=== PATIENT | female | born 1960 | race Caucasian/White ===

== ENCOUNTER → 2019-12-18 | Outpatient (REF) | payer OTHER ==
[2019-12-18 17:48] LABS: APPEARANCE, URINE CLEAR (CLEAR); BACTERIA, URINE AUTO NEGATIVE (NEGATIVE); BILIRUBIN, URINE AUTO NEGATIVE (NEGATIVE); BLOOD, URINE BLOOD NEGATIVE (NEGATIVE); COLOR, URINE STRAW (YELLOW); GLUCOSE, URINE (UA) AUTO NEGATIVE (NEGATIVE); KETONE, URINE AUTO NEGATIVE (NEGATIVE); LEUKOCYTE ESTERASE, URINE AUTO NEGATIVE (NEGATIVE); NITRITE, URINE AUTO NEGATIVE (NEGATIVE); PROTEIN, URINE AUTO NEGATIVE (NEGATIVE); RBC, URINE AUTO 0 /HPF (0-3); SPECIFIC GRAVITY URINE AUTO 1.003 (1.002-1.035); SQUAMOUS EPITHELIAL CELL UR AU 1 /HPF (0-6); UROBILINOGEN, URINE AUTO 0.2 mg/dL (0.0-2.0); WBC, URINE AUTO 0 /HPF (0-3)
== END ==
LOC: M SMT 16:53
PROVIDERS: ATTEND Nurse Practitioner Family
DX: R32 Unspecified urinary incontinence (principal)

== ENCOUNTER 2023-06-16 10:28 | Emergency (ER) | payer OTHER ==
[~2023-06-16] VITALS: Ht 165.1 cm; Wt 55.6 kg
[2023-06-16 13:06] LABS: RSV AMPLIFICATION NEGATIVE (NEGATIVE)
[2023-06-16] MEDS ORDERED: ACETAMINOPHEN TAB 650MG DOSE (2X325MG) PO ONE (13:35)
[2023-06-16] MEDS ORDERED: IBUP80TA PO (14:26)
[2023-06-16] MEDS ORDERED: PSEU30TA88 PO (14:26)
[2023-06-16] MEDS ORDERED: MUCI120T PO (14:26)
[2023-06-16] MEDS ORDERED: ACET325C5 PO (14:26)
[2023-06-16 14:37] VITALS: BP 109/65; TEMP 99.1; O2SAT 95
== END 2023-06-16 14:40 | disposition home or self-care (01) ==
LOC: M ED 10:28
DX: J09.X2 Influenza due to identified novel influenza A virus with other respiratory manifestations (principal); I50.9 Heart failure, unspecified; F17.200 Nicotine dependence, unspecified, uncomplicated; Z88.0 Allergy status to penicillin; Z88.8 Allergy status to other drugs, medicaments and biological substances

== ENCOUNTER 2023-12-28 19:39 | Inpatient (IN) | payer OTHER ==
[~2023-12-28] VITALS: Ht 167.6 cm; Wt 61.0 kg
[~2023-12-28 19:39] MED LIST: ACET325C5 PO; IBUP80TA PO; MUCI120T PO; PSEU30TA88 PO
[2023-12-28 19:57] LABS: BASO # 0.1 10^3/uL (0.0-0.2); BASO % 0.6 % (0.0-1.0); EOS # 0.2 10^3/uL (0.0-0.5); EOS % 2.1 % (0.0-3.0); HEMOGLOBIN 14.6 g/dl (12.0-15.5); LYMPH # 3.7 10^3/uL (1.5-5.0); LYMPH % 41.4 % (24.0-44.0); MEAN CORPUSCULAR HEMOGLOBIN 30.2 pg (27.0-33.0); MEAN CORPUSCULAR HGB CONC 34.8 g/dl (32.0-36.5); MEAN CORPUSCULAR VOLUME 86.8 fl (80.0-96.0); MONO # 0.6 10^3/uL (0.0-0.8); MONO % 6.2 % (2.0-8.0); NEUTROPHILS # 4.4 10^3/uL (1.5-8.5); NEUTROPHILS % 49.5 % (36.0-66.0); PLATELET COUNT, AUTOMATED 313 10^3/uL (150-450); RED BLOOD COUNT 4.84 10^6/uL (4.00-5.40); WHITE BLOOD COUNT 8.9 10^3/uL (4.0-10.0)
[2023-12-28] MEDS: NS 1,000 ML IV ONE ×2 (19:59→20:47)
[2023-12-28 20:00] LABS: VENOUS O2 SATURATION 73.2 % (60.0-80.0); VENOUS PARTIAL PRESSURE CO2 37.1 mmHg (38.0-50.0); VENOUS PARTIAL PRESSURE O2 32.2 mmHg (30.0-50.0); VENOUS PH 7.428 UNITS (7.330-7.430); VENOUS STANDARD HCO3 23.9 MMOL/L; VENOUS TOTAL CO2 25.1 MMOL/L (24.0-28.0)
[2023-12-28 20:12] LABS: INR 0.98; PARTIAL THROMBOPLASTIN TIME 29.8 SECONDS (24.8-34.2); PROTHROMBIN TIME 12.7 SECONDS (12.5-14.5)
[2023-12-28 20:22] LABS: CK-MB VALUE MASS 2.2 NG/ML (<3.6); ETHYL ALCOHOL (ETHANOL) 0.007 % (0.000-0.010)
[2023-12-28 20:23] LABS: MB/CK RELATIVE INDEX 1.12 (< OR =4)
[2023-12-28 20:24] LABS: CALCIUM LEVEL 9.5 MG/DL (8.3-10.6); CREATININE FOR GFR 2.02 MG/DL (0.55-1.30); GLOMERULAR FILTRATION RATE 26.4 (>45); MAGNESIUM LEVEL 2.2 MG/DL (1.8-2.4); POTASSIUM SERUM 4.2 MMOL/L (3.5-5.1)
[2023-12-28 20:26] LABS: FREE T4 1.13 NG/DL (0.89-1.76); THYROID STIMULATING HORMONE 2.111 uIU/ML (0.55-4.78)
[2023-12-28] MEDS: MORPHINE 2 MG/ML 1ML VIAL IV ONE (21:07)
[2023-12-28] MEDS: IPRATROPIUM 0.5MG/ALBUTEROL 2.5MG INH SOL UD 3ML (DUONEB) NEB ONE ×2 (21:27)
[2023-12-28 21:38] VITALS: O2SAT 94
[2023-12-28] MEDS ORDERED: ISOVUE-370 76% 100ML VIAL As Ordered ONE (21:44)
[2023-12-28] MEDS: LIDOCAINE 5% (LIDODERM) PATCH TD ONE (21:44)
[2023-12-28] MEDS: TRANEXAMIC ACID 100 MG/ML 10ML VIAL NEB ONE (21:53)
[2023-12-28] MEDS ORDERED: ACETAMINOPHEN TAB 650MG DOSE (2X325MG) PO PRN ×2 (22:10→22:20)
[2023-12-28] MEDS: guaiFENesin ER TABLET 600 MG TAB PO SCH (22:50)
[2023-12-28] MEDS: methylPREDNISolone 40MG 1ML VIAL IV SCH (22:50)
[2023-12-28] MEDS: LevoFLOXacin 750 MG TABLET PO ONE (22:50)
[2023-12-28] MEDS: NS 1,000 ML IV SCH (22:52)
[2023-12-29] VITALS (7 sets, daily range): BP systolic 105–122; BP diastolic 56–78; TEMP 97.2–97.9; O2SAT 92–95
[2023-12-29] MEDS: IPRATROPIUM 0.5MG/ALBUTEROL 2.5MG INH SOL UD 3ML (DUONEB) NEB SCH (00:20)
[2023-12-29] MEDS: TRANEXAMIC ACID 100 MG/ML 10ML VIAL NEB SCH (00:20)
[2023-12-29 08:06] LABS: HEMATOCRIT 38.2 % (36.0-47.0); HEMOGLOBIN 13.2 g/dl (12.0-15.5); MEAN CORPUSCULAR HEMOGLOBIN 30.1 pg (27.0-33.0); MEAN CORPUSCULAR HGB CONC 34.6 g/dl (32.0-36.5); MEAN CORPUSCULAR VOLUME 87.2 fl (80.0-96.0); PLATELET COUNT, AUTOMATED 241 10^3/uL (150-450); RED BLOOD COUNT 4.38 10^6/uL (4.00-5.40); WHITE BLOOD COUNT 6.8 10^3/uL (4.0-10.0)
[2023-12-29 08:35] LABS: ALBUMIN 3.2 G/DL (3.2-5.2); ALKALINE PHOSPHATASE 88 U/L (46-116); ALT/SGPT 21 U/L (7.0-40); AST/SGOT 14 U/L (<34); BILIRUBIN,TOTAL 0.4 MG/DL (0.3-1.2); BLOOD UREA NITROGEN 15 MG/DL (9-23); CALCIUM LEVEL 8.9 MG/DL (8.3-10.6); CARBON DIOXIDE LEVEL 20 MMOL/L (20-31); CHLORIDE LEVEL 113 MMOL/L (98-107); CREATININE FOR GFR 0.82 MG/DL (0.55-1.30); GLOMERULAR FILTRATION RATE > 60.0 (>45); GLUCOSE, FASTING 147 MG/DL (74-106); MAGNESIUM LEVEL 1.9 MG/DL (1.8-2.4); POTASSIUM SERUM 4.4 MMOL/L (3.5-5.1); SODIUM LEVEL 140 MMOL/L (136-145); TOTAL PROTEIN 6.1 G/DL (5.7-8.2)
[2023-12-29] MEDS ORDERED: TOPI-21 PO (09:28)
[2023-12-29] MEDS ORDERED: MECL-86 PO (09:28)
[2023-12-29] MEDS ORDERED: VITA200016 PO (09:28)
[2023-12-29] MEDS ORDERED: CLOP75TA2 PO (09:28)
[2023-12-29] MEDS ORDERED: NITR0.4S14 PO (09:28)
[2023-12-29] MEDS: PANTOPRAZOLE 40MG TAB (PROTONIX) PO SCH (09:46)
[2023-12-29] MEDS: PERCOCET 5MG/325MG TAB PO PRN (15:10)
[2023-12-30] VITALS (8 sets, daily range): BP systolic 110–144; BP diastolic 50–64; TEMP 97.5–98.1; O2SAT 91–97
[2023-12-30 09:20] LABS: BASO % 0.2 % (0.0-1.0); HEMATOCRIT 36.1 % (36.0-47.0); HEMOGLOBIN 12.2 g/dl (12.0-15.5); LYMPH # 1.3 10^3/uL (1.5-5.0); LYMPH % 9.6 % (24.0-44.0); MEAN CORPUSCULAR HGB CONC 33.8 g/dl (32.0-36.5); MEAN CORPUSCULAR VOLUME 88.7 fl (80.0-96.0); MONO # 0.3 10^3/uL (0.0-0.8); MONO % 2.5 % (2.0-8.0); NEUTROPHILS # 11.4 10^3/uL (1.5-8.5); NEUTROPHILS % 86.9 % (36.0-66.0); PLATELET COUNT, AUTOMATED 264 10^3/uL (150-450); RED BLOOD COUNT 4.07 10^6/uL (4.00-5.40); WHITE BLOOD COUNT 13.1 10^3/uL (4.0-10.0)
[2023-12-30] MEDS ORDERED: NITROGLYCERIN 0.4MG SUBL TABLET SL PRN (11:05)
[2023-12-30] MEDS: TOPIRAMATE (TopAMAX) 25 MG TAB PO SCH (11:39)
[2023-12-30] MEDS: MECLIZINE 25 MG TABLET PO SCH (15:52)
[2023-12-30 16:34] LABS: BLOOD UREA NITROGEN 15 MG/DL (9-23); CALCIUM LEVEL 9.5 MG/DL (8.3-10.6); CARBON DIOXIDE LEVEL 20 MMOL/L (20-31); CHLORIDE LEVEL 110 MMOL/L (98-107); CREATININE FOR GFR 0.73 MG/DL (0.55-1.30); GLOMERULAR FILTRATION RATE > 60.0 (>45); GLUCOSE, FASTING 118 MG/DL (74-106); POTASSIUM SERUM 4.2 MMOL/L (3.5-5.1); SODIUM LEVEL 138 MMOL/L (136-145)
[2023-12-30] MEDS: LevoFLOXacin 750 MG TABLET PO SCH (21:45)
[2023-12-31] VITALS (10 sets, daily range): BP systolic 97–152; BP diastolic 51–82; TEMP 97.3–97.8; O2SAT 92–98
[2023-12-31 06:40] LABS: BASO % 0.4 % (0.0-1.0); EOS % 0.1 % (0.0-3.0); HEMATOCRIT 35.9 % (36.0-47.0); HEMOGLOBIN 12.1 g/dl (12.0-15.5); LYMPH # 2.8 10^3/uL (1.5-5.0); LYMPH % 25.9 % (24.0-44.0); MEAN CORPUSCULAR HEMOGLOBIN 29.9 pg (27.0-33.0); MEAN CORPUSCULAR HGB CONC 33.7 g/dl (32.0-36.5); MEAN CORPUSCULAR VOLUME 88.6 fl (80.0-96.0); MONO # 0.7 10^3/uL (0.0-0.8); MONO % 6.2 % (2.0-8.0); NEUTROPHILS # 7.3 10^3/uL (1.5-8.5); NEUTROPHILS % 66.7 % (36.0-66.0); PLATELET COUNT, AUTOMATED 288 10^3/uL (150-450); RED BLOOD COUNT 4.05 10^6/uL (4.00-5.40)
[2023-12-31 07:17] LABS: BLOOD UREA NITROGEN 22 MG/DL (9-23); CALCIUM LEVEL 9.4 MG/DL (8.3-10.6); CARBON DIOXIDE LEVEL 22 MMOL/L (20-31); CHLORIDE LEVEL 112 MMOL/L (98-107); CREATININE FOR GFR 0.89 MG/DL (0.55-1.30); GLOMERULAR FILTRATION RATE > 60.0 (>45); GLUCOSE, FASTING 87 MG/DL (74-106); MAGNESIUM LEVEL 2.2 MG/DL (1.8-2.4); POTASSIUM SERUM 4.2 MMOL/L (3.5-5.1); SODIUM LEVEL 140 MMOL/L (136-145)
[2023-12-31] MEDS ORDERED: DULO20CA27 PO (09:08)
[2023-12-31] MEDS ORDERED: FLUO-365 PO (09:08)
[2023-12-31] MEDS ORDERED: PSEU30TA88 PO (09:08)
[2023-12-31] MEDS ORDERED: QUET50TA4 PO (09:08)
[2023-12-31] MEDS ORDERED: REST0.057 OP (09:08)
[2023-12-31] MEDS ORDERED: TROS20TA3 PO (09:08)
[2023-12-31] MEDS ORDERED: ATOR40TA75 PO (09:08)
[2023-12-31] MEDS ORDERED: BETA5OI TOP (09:08)
[2023-12-31] MEDS ORDERED: ALBU8.5H INH (09:08)
[2023-12-31] MEDS ORDERED: RANO500T2 PO (09:08)
[2023-12-31] MEDS ORDERED: ALBU2.5V10 INH (09:08)
[2023-12-31] MEDS ORDERED: IBUP80TA PO (09:08)
[2023-12-31] MEDS ORDERED: SYMB16INH INH (09:08)
[2023-12-31] MEDS ORDERED: TOPI25TA10 PO (09:20)
[2023-12-31] MEDS: EPINEPHrine 1MG/10ML SYRINGE 1.5IN As Ordered ONE (11:37)
[2023-12-31] MEDS: CETACAINE SPRAY 5GM As Ordered ONE (11:37)
[2024-01-01] VITALS (10 sets, daily range): BP systolic 85–134; BP diastolic 41–74; TEMP 97.3–97.9; O2SAT 88–95
[2024-01-01 06:17] LABS: BASO % 0.5 % (0.0-1.0); EOS # 0.1 10^3/uL (0.0-0.5); EOS % 1.4 % (0.0-3.0); HEMATOCRIT 38.5 % (36.0-47.0); LYMPH # 3.9 10^3/uL (1.5-5.0); LYMPH % 44.7 % (24.0-44.0); MEAN CORPUSCULAR HEMOGLOBIN 29.8 pg (27.0-33.0); MEAN CORPUSCULAR HGB CONC 33.8 g/dl (32.0-36.5); MEAN CORPUSCULAR VOLUME 88.3 fl (80.0-96.0); MONO # 0.6 10^3/uL (0.0-0.8); MONO % 6.5 % (2.0-8.0); NEUTROPHILS # 4.1 10^3/uL (1.5-8.5); NEUTROPHILS % 46.2 % (36.0-66.0); PLATELET COUNT, AUTOMATED 269 10^3/uL (150-450); RED BLOOD COUNT 4.36 10^6/uL (4.00-5.40); WHITE BLOOD COUNT 8.8 10^3/uL (4.0-10.0)
[2024-01-01 06:39] LABS: CALCIUM LEVEL 9.2 MG/DL (8.3-10.6); CREATININE FOR GFR 1.06 MG/DL (0.55-1.30); GLOMERULAR FILTRATION RATE 55.6 (>45)
[2024-01-01] MEDS: MORPHINE 4 MG/ML 1ML VIAL IV PRN (08:41)
[2024-01-01] MEDS ORDERED: fentaNYL 100 MCG/2 ML INJECTION As Ordered ONE (09:42)
[2024-01-01] MEDS ORDERED: MIDAZOLAM INJ 2MG/2ML VIAL As Ordered ONE (09:42)
[2024-01-01] MEDS ORDERED: LIDOCAINE 2% 100MG/5ML SDV (FOR ANES.) As Ordered ONE (09:57)
[2024-01-01] MEDS ORDERED: propofoL 200 MG/20 ML VIAL As Ordered ONE (09:57)
[2024-01-01] MEDS ORDERED: ROCURONIUM BROMIDE 50MG/5ML VIAL As Ordered ONE (09:58)
[2024-01-01] MEDS ORDERED: ePHEDrine SULFATE 25 MG/5 ML(5MG/ML) SYRINGE As Ordered ONE (11:48)
[2024-01-01] MEDS ORDERED: ONDANSETRON 4MG 2ML VIAL As Ordered ONE (12:15)
[2024-01-01] MEDS ORDERED: fentaNYL 100 MCG/2 ML INJECTION IV PRN (12:25)
[2024-01-01] MEDS ORDERED: ACETAMINOPHEN 1000MG 100ML IV BAG As Ordered ONE (12:37)
[2024-01-01] MEDS: ONDANSETRON 4MG 2ML VIAL IV PRN (13:00)
[2024-01-01] MEDS: HYDROMORPHONE HCL 0.5 MG/ 0.5 ML SYRINGE IV PRN (13:01)
[2024-01-01] MEDS: oxyCODONE 5MG TAB PO PRN (13:01)
[2024-01-01] MEDS ORDERED: [UNRECOGNIZED DRUG - CODE] NEB (14:23)
[2024-01-01] MEDS: TRANEXAMIC ACID 100 MG/ML 10ML VIAL NEB SCH (16:14)
[2024-01-02 00:32] VITALS: BP 110/60; TEMP 97.7; O2SAT 94
[2024-01-02 04:34] VITALS: BP 110/58; TEMP 97.9; O2SAT 97
[2024-01-02 06:05] LABS: BASO % 0.1 % (0.0-1.0); HEMATOCRIT 39.7 % (36.0-47.0); HEMOGLOBIN 13.4 g/dl (12.0-15.5); LYMPH # 1.7 10^3/uL (1.5-5.0); LYMPH % 13.4 % (24.0-44.0); MEAN CORPUSCULAR HEMOGLOBIN 29.8 pg (27.0-33.0); MEAN CORPUSCULAR HGB CONC 33.8 g/dl (32.0-36.5); MEAN CORPUSCULAR VOLUME 88.4 fl (80.0-96.0); MONO # 0.8 10^3/uL (0.0-0.8); MONO % 6.1 % (2.0-8.0); NEUTROPHILS # 10.2 10^3/uL (1.5-8.5); NEUTROPHILS % 79.6 % (36.0-66.0); PLATELET COUNT, AUTOMATED 278 10^3/uL (150-450); RED BLOOD COUNT 4.49 10^6/uL (4.00-5.40); WHITE BLOOD COUNT 12.8 10^3/uL (4.0-10.0)
[2024-01-02 06:29] LABS: BLOOD UREA NITROGEN 20 MG/DL (9-23); CALCIUM LEVEL 9.5 MG/DL (8.3-10.6); CARBON DIOXIDE LEVEL 23 MMOL/L (20-31); CHLORIDE LEVEL 109 MMOL/L (98-107); CREATININE FOR GFR 0.92 MG/DL (0.55-1.30); GLOMERULAR FILTRATION RATE > 60.0 (>45); GLUCOSE, FASTING 132 MG/DL (74-106); POTASSIUM SERUM 3.9 MMOL/L (3.5-5.1); SODIUM LEVEL 139 MMOL/L (136-145)
[2024-01-02 08:05] VITALS: O2SAT 93
[2024-01-02 08:45] VITALS: BP 142/62; TEMP 97.9; O2SAT 92
[2024-01-02] MEDS ORDERED: MUCI600T31 PO (11:34)
[2024-01-02] MEDS ORDERED: LEVO1TAB40 PO (11:34)
[2024-01-02 12:00] VITALS: BP 114/52; TEMP 97.9; O2SAT 96
[2024-01-02] MEDS ORDERED: ASPI81TA26 PO (12:18)
== END 2024-01-02 13:27 | disposition home or self-care (01) | DRG 121 ==
LOC: M ED 19:39 → M ED INP 22:09 → M MSPAV 12-29 00:20
PROVIDERS: ADMIT Preventive Medicine Undersea and Hyperbaric Medicine; ATTEND Hospitalist
PROC: B246ZZZ Ultrasonography of Right and Left Heart (ICD-10-PCS; 2023-12-31)
PROC: 0BBH8ZX Excision of Lung Lingula, Via Natural or Artificial Opening Endoscopic, Diagnostic (ICD-10-PCS; 2023-12-31)
PROC: 0BC Respiratory System, Extirpation (ICD-10-PCS; principal; 2024-01-01 11:00)
DX: R04.2 Hemoptysis (principal); I50.9 Heart failure, unspecified; J84.10 Pulmonary fibrosis, unspecified; J43.9 Emphysema, unspecified; I48.0 Paroxysmal atrial fibrillation; J44.9 Chronic obstructive pulmonary disease, unspecified; G89.29 Other chronic pain; M54.9 Dorsalgia, unspecified; F17.200 Nicotine dependence, unspecified, uncomplicated; I34.1 Nonrheumatic mitral (valve) prolapse; I25.10 Atherosclerotic heart disease of native coronary artery without angina pectoris; Z79.01 Long term (current) use of anticoagulants; Z79.02 Long term (current) use of antithrombotics/antiplatelets; Z79.899 Other long term (current) drug therapy; Z88.0 Allergy status to penicillin; Z88.6 Allergy status to analgesic agent

== ENCOUNTER → 2024-01-29 | Outpatient (REF) ==
[~2024-01-29] MED LIST changes: +ALBU2.5V10 INH; +ALBU8.5H INH; +ASPI81TA26 PO; +ATOR40TA75 PO; +BETA5OI TOP; +CLOP75TA2 PO; +DULO20CA27 PO; +FLUO-365 PO; +LEVO1TAB40 PO; +MECL-86 PO; +MUCI600T31 PO; +NITR0.4S14 PO; +QUET50TA4 PO; +RANO500T2 PO; +REST0.057 OP; +SYMB16INH INH; +TOPI-21 PO; +TOPI25TA10 PO; +TROS20TA3 PO; +VITA200016 PO; +[UNRECOGNIZED DRUG - CODE] NEB
== END ==
LOC: M PLAIMG 13:02
PROVIDERS: ATTEND Internal Medicine
DX: R52 Pain, unspecified (principal)